=== PATIENT | male | born 1950 | race Caucasian/White ===

== ENCOUNTER 2020-09-26 11:45 | Inpatient (IN) | payer MEDICARE, SELFPAY ==
[2020-09-26] VITALS (32 sets, daily range): BP systolic 86–121; BP diastolic 52–78; PULSE 84–94; RESP 12–27; TEMP 36.7; O2SAT 82–99; BMI 34.8
[2020-09-26 12:47] LABS: ABG PCO2 61.8 mmHg (35-45); ABG PH Result 7.19 (7.35-7.45); Base Excess ABG -5.1 mmol/L (-2.0-2.0); Blood Gas Allen Test Pos; Blood Gas Operator Identificat MONRO; Blood Gas Sample Site Brachial, left; Blood Gas Sample Type Arterial; HCO3 ABG 23.7 mmol/L (22-26); Oxygen Device NC; PO2 ABG 93.1 mmHg (80.0-100.0)
--- NOTE | 2020-09-26 13:07 | US_ITS ---
WS: [id number] RENAL ULTRASOUND HISTORY: LOVELY COMPARISON: None available. TECHNIQUE: 2-D and color Doppler imaging of the kidney submitted. Right kidney: 11.0 cm x 7.5 cm x 6.1 cm. Normal echogenicity with no hydronephrosis or mass. Left kidney: 11.1 cm x 4.8 cm x 5.3 cm. Normal echogenicity with no hydronephrosis or mass. Aorta: Normal. Urinary Bladder: Nondistended. Knight catheter is in place. US/US renal BI* [id number] IMPRESSION: No renal obstruction or medical renal disease. Normal kidneys.
--- NOTE | 2020-09-26 13:07 | CTR_ITS ---
PROCEDURE INFORMATION: Exam: CT Head Without Contrast Exam date and time: 09/26/2020 5:19 PM Age: 70 years old Clinical indication: Altered mental status/memory loss; Additional info: AMS TECHNIQUE: Imaging protocol: Computed tomography of the head without contrast. Total images: 213 Radiation optimization: All CT scans at this facility use at least one of these dose optimization techniques: automated exposure control; mA and/or kV adjustment per patient size (includes targeted exams where dose is matched to clinical indication); or iterative reconstruction. COMPARISON: No relevant prior studies available. RADIATION DOSE METRICS: Total DLP (mGy-cm): 858.43 FINDINGS: Brain: No evidence of active or acute intracranial pathologic process, hemorrhage, or trauma. Mild small vessel ischemic disease with senile periventricular leukomalacia. Atrophic changes not inconsistent with the patient's chronological age. Few scattered benign intraparenchymal tiny calcification foci. Cerebral ventricles: No ventriculomegaly. Bones/joints: Unremarkable. No acute fracture. Paranasal sinuses: Mild chronic ethmoid and right maxillary sinusitis. Mastoid air cells: Visualized mastoid air cells are well aerated. Soft tissues: Unremarkable. Other findings: Motion artifact. CT/CT head wo con* [id number] IMPRESSION: No evidence of active or acute intracranial pathologic process, hemorrhage, or trauma. Radiation Dose CTDIVOL = (mGy): DLP = 858.43 (mGy-cm)
[2020-09-26 13:41] LABS: Glucose Point of Care 111 mg/dL (70-110)
[2020-09-26] MEDS: sodium chloride 0.9% 1,000 ML 75 ML IV (13:58)
[2020-09-26] MEDS: piperacillin-tazobactam 3.375 GM in sodium chloride 0.9% (plus) 50 ML IV ×2 (13:58→21:13)
[2020-09-26 14:43] LABS: Ammonia 49 umol/L (16-60)
[2020-09-26 14:46] LABS: Lactic Sepsis W/Reflex 0.9 mmol/L (0.5-2.2)
[2020-09-26 14:58] LABS: INR 1.12 (0.8-1.2)
--- NOTE | 2020-09-26 15:00 | P.HP_ITS ---
Providers/Chief Complaint Admitting Physician: Gildardo Brito Primary Care Provider: Ja Lay MD Chief Complaint: Covid Pneumonia History of Present Illness Hank London is a 70 year old male with unknown past medical history who is transferred from [facility] ED with diagnosis of hypoxia and hypotension. The patient is very confused and is unable to provide any history. Review of his home medications indicates that he probably has history of hypertension, dyslipidemia, GERD, possible diabetes. About 15 days ago according to ER physician the patient was diagnosed with COVID-19 pneumonia. The patient was hospitalized and treated and eventually [facility] facility. From there he went home about 2 days ago. Eventually EMS was called due to unresponsive state. The patient was found to have hypotension, hyposee, hypercapnia. He was given Narcan which helped with breathing and improved mental state for short period of time. The patient takes [place] according to the medication list however I was not able to get her information about why he is on [place] and if he takes [place] as instructed. I called to phone numbers provided in the chart. Nobody picked up the phone. Review of Systems General: Reports: ROS unobtainable due to mental status Medications/Allergies Allergies Allergy/AdvReac Type Severity Reaction Status Date / Time PATTI Inhibitors Allergy Unknown Verified 09/26/20 14:32 Vitals/I&O/Wt Last Vital Signs Pulse 86 09/26/20 13:16 Pulse Ox 98 09/26/20 13:16 Weight last 48 hrs Weight 103.873 kg Physical Exam Narrative: EXAM NARRATIVE: Patient is very lethargic. He opens his eyes when instructed. He also follows some other simple instructions. Unable to talk. No acute distress. Skin is warm and dry. Dry mucous membranes. Eyes. Pinpoint pupils which are symmetric and reactive. Neck is supple. No JVD. Lungs decreased breath sounds bilaterally. Mild bibasilar crackles. No respiratory distress. Bradypnea is present. Heart S1, S2, regular Abdomen obese, soft, nontender, bowel sounds are present Extremities no edema cyanosis or calf tenderness bilaterally Neuro exam no facial asymmetry. Moves all limbs but muscle strength is very decreased. Data : 09/26/20 13:55 09/26/20 13:55 Micro: Microbiology 09/26/20 13:55 Blood Culture - Preliminary Blood SPECIMEN COLLECTED 09/26/20 13:46 Blood Culture - Preliminary Blood SPECIMEN COLLECTED A&P Additional A&P Information Acute metabolic encephalopathy. Probably multifactorial. Could be related to opiates and definitely to hypercapnic metabolic acidosis. Continue management in ICU. N.p.o. Aspiration precautions. We will check TSH and ammonia level. Will order head CT. Acute hypoxic and hypercapnic respiratory failure. Will start BiPAP. Discussed with the respiratory therapist. Will use Narcan. First dose now. Possible septic shock. The patient has leukocytosis and is hypotensive. Pneumonia, possibly hospital-acquired type is suspected. We will continue norepinephrine. We will start him on broad-spectrum antibiotics. We will culture the blood. Very gentle IV fluid hydration. Cardiac status is unknown. Lactic acid level is normal. Acute kidney injury probably secondary to above. Will do ultrasound and insert Knight catheter. We will try to avoid nephrotoxic medications. Gentle hydration. Hyperkalemia. Probably secondary to acute kidney injury and acidosis. Continue normal saline. We will recheck his chemistry panel. Will avoid medications which can increase potassium level. Anemia. Monitor. Elevated LFTs. Monitor. Could be secondary to sepsis. Hyponatremia. Probably related to hyperglycemia. Close monitoring. Hyperglycemia-diabetes. Start insulin sliding scale. DVT prophylaxis. Teds and SCDs for now. Will wait with chemical anticoagulation until we have follow-up CBC and head CT reports. GI prophylaxis. Famotidine. Attestations Medical Necessity Statement*: The patient is admitted in critical condition to ICU. I expect that the patient will spend more than 2 midnights in the hospital Coding Level of Care Code Acute Escrow Representative for Kyleigh Haas
[2020-09-26 15:05] LABS: D Dimer 0.64 ug/mIFEU (0-0.59); Partial Thromboplastin Time 41.7 SECONDS (23.9-36.7)
[2020-09-26 15:51] LABS: ABG PCO2 54.3 mmHg (35-45); ABG PH Result 7.23 (7.35-7.45); Base Excess ABG -4.9 mmol/L (-2.0-2.0); Blood Gas Allen Test Pos; Blood Gas Operator Identificat MONRO; Blood Gas Sample Site Brachial, left; Blood Gas Sample Type Arterial; HCO3 ABG 22.9 mmol/L (22-26); Oxygen Device BIPAP
[2020-09-26 16:08] LABS: C Reactive Protein 61.9 mg/L (0.0-4.9); Thyroid Stimulating Hormone 2.16 uIU/mL (0.27-4.20)
[2020-09-26 16:10] LABS: Procalcitonin 0.86 ng/mL (0-0.5)
[2020-09-26 16:21] LABS: Alanine Aminotransferase 54 U/L (0-41); Albumin Level 3.2 g/dL (3.5-5.2); Alkaline Phosphatase 175 IU/L (40-130); Anion Gap 23.7 (5-19); Aspartate Amino Transferase 26 U/L (0-40); Calcium 8.4 mg/dL (8.5-10.5); Carbon Dioxide 19 mmol/L (22-29); Chloride 97 mmol/L (98-107); Globulin 3.5 g/dL (1.3-4.6); Glomerular Filtration Rate 22.6 mL/min (90-130); Glucose 97 mg/dL (65-115); Osmolality Calculated 306 mOsm/kg (285-295); Potassium 5.7 mmol/L (3.5-5.1); Sodium 134 mmol/L (136-145); Total Bilirubin 0.2 mg/dL (0.15-1.2); Total Protein 6.7 g/dL (6.6-8.7)
[2020-09-26] MEDS: famotidine 20 mg/2 mL INJ IVP (16:22)
[2020-09-26] MEDS: linezolid premix 600 MG/300 ML PREMIX 300 MG IV (16:22)
[2020-09-26 16:34] LABS: Blood Urea Nitrogen 92 mg/dL (8-23)
[2020-09-26 16:48] LABS: Glucose Point of Care 78 mg/dL (70-110)
[2020-09-26 17:05] LABS: Estmated Average Glucose 226; Hemoglobin A1C 9.5 % (4.0-6.0)
[2020-09-26 18:37] LABS: Basophils % 0.1 %; Eosinophils % 0.2 %; Hematocrit 33.7 % (42.0-52.0); Hemoglobin 10.7 g/dL (11.7-16.6); Lymphocytes # 0.8 10^3/uL (0.8-4.8); Lymphocytes % 5.4 %; Mean Corpuscular HGB Conc 31.8 g/dL (30.0-36.0); Mean Corpuscular Hemoglobin 28.6 pg (28.0-34.0); Mean Corpuscular Volume 90.1 fL (80-94); Mean Platelet Volume 10.6 fL (7.4-10.4); Monocytes # 0.9 10^3/uL (0.2-0.9); Monocytes % 5.9 %; Neutrophils # 13.29 10^3/uL (1.8-7.7); Nucleated Red Blood Cells % 0 %; Platelet Count 612 10^3/cmm (130-400); Red Blood Count 3.74 10^6/uL (4.1-5.3); Red Cell Distribution Width 14.9 % (12.1-15.1); White Blood Count 15.1 10^3/uL (4.0-10.0)
[2020-09-26 18:57] LABS: Glucose Point of Care 57 mg/dL (70-110)
[2020-09-26] MEDS: heparin 5,000 unit/mL INJ 1 mL 5000 UNIT SUBCUT (18:58)
[2020-09-26] MEDS: dextrose 50% syringe 50 mL 25 ML IVP (19:00)
[2020-09-26] MEDS: dextrose 5 % 500 ML 50 ML IV (19:00)
[2020-09-26 19:01] LABS: Add Urine Microscopic? YES; Bilirubin Urine Neg (Negative); Blood Urine 2+ (Negative); Glucose Urine UA Norm (Normal); Ketones Urine Negative (Negative); Leukocyte Esterase Urine 2+ (Negative); Nitrate Urine Negative (Negative); Protein Urine Neg (Negative); Urine Appearance Cloudy (CLEAR); Urine Color Yellow (Yellow); Urobilinogen Urine Norm (Negative); pH Urine 5 (5-7)
[2020-09-26 19:04] LABS: WBC Urine 55-80 /hpf (0-5)
[2020-09-26 19:05] LABS: Bacteria Urine 2+ /hpf; Hyaline Casts Urine 0-4 /lpf; Squamous Epithelial Cell Urine 0-4 /hpf (0-5)
[2020-09-26 19:06] LABS: Add Urine Culture? Yes
[2020-09-26 21:02] LABS: Glucose Point of Care 75 mg/dL (70-110)
--- NOTE | 2020-09-26 21:38 | PC.NURSE ---
AO to self and being in hospital, follows commands, keeps clothes and blankets off, fidgets in bed but denies pain and SOB, tries to move Bipap mask but leaves it alone with education, supine 45 degrees call light within reach at this time
[2020-09-27] VITALS (34 sets, daily range): BP systolic 91–148; BP diastolic 47–72; PULSE 73–96; RESP 12–26; TEMP 35.6–36.9; O2SAT 91–100
[2020-09-27 01:38] LABS: Glucose Point of Care 57 mg/dL (70-110)
[2020-09-27 01:38] LABS: Glucose Point of Care 55 mg/dL (70-110)
[2020-09-27] MEDS: dextrose 50% syringe 50 mL 25 ML IVP (01:42)
--- NOTE | 2020-09-27 01:45 | PC.NURSE ---
Glucose 55, 1/2 amp D50 given per protocol, D5 still running at 50 ml/hr
[2020-09-27 02:21] LABS: Glucose Point of Care 74 mg/dL (70-110)
[2020-09-27 02:21] LABS: Glucose Point of Care 68 mg/dL (70-110)
[2020-09-27] MEDS: heparin 5,000 unit/mL INJ 1 mL 5000 UNIT SUBCUT ×3 (02:28→18:23)
[2020-09-27 02:38] LABS: Glucose Point of Care 76 mg/dL (70-110)
[2020-09-27 03:18] LABS: Glucose Point of Care 70 mg/dL (70-110)
--- NOTE | 2020-09-27 03:28 | PC.NURSE ---
Glucose currently 70, previous was 74, patient not alert enough to attempt to eat or drink, D5 increased to 100 ml/hr, Dr. Hernandez notified and advised this nurse to continue with D5
[2020-09-27] MEDS: dextrose 5 % 500 ML 100 ML IV (03:34)
[2020-09-27] MEDS: sodium chloride 0.9% 1,000 ML 75 ML IV (03:39)
[2020-09-27] MEDS: famotidine 20 mg/2 mL INJ IVP ×2 (03:58→15:48)
[2020-09-27] MEDS: linezolid premix 600 MG/300 ML PREMIX 300 MG IV ×2 (04:06→15:48)
[2020-09-27 04:50] LABS: Basophils % 0.2 %; Eosinophils % 0.2 %; Hematocrit 34.5 % (42.0-52.0); Hemoglobin 10.6 g/dL (11.7-16.6); Lymphocytes # 1.1 10^3/uL (0.8-4.8); Lymphocytes % 6.5 %; Mean Corpuscular HGB Conc 30.7 g/dL (30.0-36.0); Mean Corpuscular Hemoglobin 28.1 pg (28.0-34.0); Mean Corpuscular Volume 91.5 fL (80-94); Mean Platelet Volume 10.8 fL (7.4-10.4); Monocytes % 5.8 %; Neutrophils # 14.79 10^3/uL (1.8-7.7); Neutrophils % 86.9 %; Nucleated Red Blood Cells % 0 %; Platelet Count 575 10^3/cmm (130-400); Red Blood Count 3.77 10^6/uL (4.1-5.3)
[2020-09-27 05:34] LABS: Glucose Point of Care 110 mg/dL (70-110)
[2020-09-27] MEDS: piperacillin-tazobactam 3.375 GM in sodium chloride 0.9% (plus) 50 ML IV ×3 (05:41→22:32)
[2020-09-27 06:41] LABS: Alanine Aminotransferase 54 U/L (0-41); Albumin Level 3.2 g/dL (3.5-5.2); Alkaline Phosphatase 167 IU/L (40-130); Anion Gap 17.5 (5-19); Aspartate Amino Transferase 58 U/L (0-40); Blood Urea Nitrogen 72 mg/dL (8-23); Carbon Dioxide 23 mmol/L (22-29); Chloride 99 mmol/L (98-107); Globulin 3.4 g/dL (1.3-4.6); Glomerular Filtration Rate 37.7 mL/min (90-130); Glucose 64 mg/dL (65-115); Osmolality Calculated 299 mOsm/kg (285-295); Potassium 4.5 mmol/L (3.5-5.1); Sodium 135 mmol/L (136-145); Total Bilirubin 0.2 mg/dL (0.15-1.2); Total Protein 6.6 g/dL (6.6-8.7)
[2020-09-27 06:46] LABS: Calcium 8.1 mg/dL (8.5-10.5); Magnesium 2.2 mg/dL (1.7-2.3)
[2020-09-27 09:41] LABS: Glucose Point of Care 93 mg/dL (70-110)
[2020-09-27 10:45] LABS: Glucose Point of Care 77 mg/dL (70-110)
[2020-09-27] MEDS: dextrose 5%-sod chloride 0.45% 1,000 ML 100 ML IV (10:45)
[2020-09-27 10:56] LABS: ABG PCO2 51.1 mmHg (35-45); ABG PH Result 7.31 (7.35-7.45); Base Excess ABG -0.8 mmol/L (-2.0-2.0); Blood Gas Allen Test Pos; Blood Gas Operator Identificat AMH; Blood Gas Sample Site Radial, left; Blood Gas Sample Type Arterial; HCO3 ABG 25.9 mmol/L (22-26); Oxygen Device BIPAP; PO2 ABG 72.1 mmHg (80.0-100.0)
[2020-09-27 12:09] LABS: Glucose Point of Care 67 mg/dL (70-110)
[2020-09-27] MEDS: dextrose 50% syringe 50 mL IVP (12:09)
--- NOTE | 2020-09-27 13:31 | P.PN_ITS ---
Subjective Subjective: Interval history: The patient remained on BiPAP since yesterday. Bradypnea has resolved. Still lethargic but more responsive. No acute distress. Several hypoglycemic episodes are registered. Off pressors. Blood pressure is improved. Medications: Reviewed: Yes Medication Review Details: Generic Name Dose Route Start Last Admin Trade Name Freq PRN Reason Stop Dose Admin Dextrose 50 ml 09/26/20 13:07 09/27/20 12:09 Dextrose 50% Syr bernardo 50 Ml IVP 50 ml PRN PRN Administration hypoglycemia prot ocol Protocol Famotidine 20 mg 09/26/20 16:00 09/27/20 03:58 Famotidine 20 Mg /2 Ml Inj IVP 20 mg Q12H BRIT Administration Heparin Sodium (Be ef Lung) 5,000 unit 09/26/20 18:00 09/27/20 10:40 Heparin 5,000 Un it/Ml Inj 1 Ml SUBCUT 5,000 unit Q8H BRIT Administration Norepinephrine Bit artrate 4 mg 254 mls @ 0 mls/h r 09/26/20 12:45 09/26/20 21:13 / Dextrose IV 0 mcg/min .Q0M BRIT 0 mls/hr Titration Protocol Per Protocol Piperacillin Sod/T azobactam 50 mls @ 12.5 mls /hr 09/26/20 14:00 09/27/20 10:45 Sod 3.375 gm/ So dium Chloride IV Infused Q8H BRIT Infusion Protocol As Directed Linezolid 600 mg in 300 mls @ 300 mls/hr 09/26/20 16:00 09/27/20 06:40 Zyvox Premix IV Infused Q12H BRIT Infusion Protocol Dextrose/Sodium Ch loride 1,000 mls @ 100 m ls/hr 09/27/20 10:15 09/27/20 10:45 Dextrose 5%-Sod Chloride 0.45% IV 100 mls/hr .Q10H BRIT Administration Insulin Aspart 0 unit 09/26/20 13:15 09/27/20 12:53 Insulin Aspart 1 00 Unit/1 Ml SUBCUT Not Given Q6H BRIT Protocol Vitals/I&O/Wt Last Vital Signs Temp 98.1 F 09/27/20 09:00 Pulse 86 09/27/20 12:00 Resp 20 H 09/27/20 09:00 BP 126/72 09/27/20 12:00 Pulse Ox 94 09/27/20 12:00 09/26/20 09/27/20 09/27/20 22:59 06:59 14:59 Intake Total 415.393 / 684.275 3715.333 / 2243.726 1082.5 / 1082.5 Output Total 400 / 700 1550 / 2250 1200 / 1200 Balance 15.393 / -234.607 228.333 / -6.274 -117.5 / -117.5 Weight last 48 hrs Weight 106.141 kg Weight 103.873 kg Physical Exam Narrative: EXAM NARRATIVE: Patient is less lethargic. He opens his eyes when instructed. He also follows nstructions. No dysarthria. However the speech is slow. Confusion is present. No acute distress. Skin is warm and dry. Moist mucous membranes. Eyes. Pinpoint pupils which are symmetric and reactive. Extraocular muscles ar e intact Neck is supple. No JVD. Lungs decreased breath sounds bilaterally. Decreased breath sounds bibasilarly. No respiratory distress. Heart S1, S2, regular Abdomen obese, soft, nontender, bowel sounds are present Extremities no edema cyanosis or calf tenderness bilaterally Neuro exam no facial asymmetry. Moves all limbs but muscle strength is very decreased. Urinary Catheter Management^: Knight: Cath Placed During This Visit: no Reason for Continuing Indwelling Catheter: Accurate Measurement of Urinary Output in Critically Ill Patients Data : 09/27/20 04:40 09/27/20 04:40 Micro: Microbiology 09/26/20 13:55 Blood Culture - Preliminary Blood SPECIMEN COLLECTED 09/26/20 13:46 Blood Culture - Preliminary Blood SPECIMEN COLLECTED A&P Additional A&P Information Acute metabolic encephalopathy. Probably multifactorial. Could be related to opiates and definitely to hypercapnic metabolic acidosis. Continue management in ICU. Aspiration precautions. Speech eval. TSH and ammonia levels within normal range. CT was unremarkable. Acute hypoxic and hypercapnic respiratory failure. Continue BiPAP for now with transition to nasal cannula to maintain oxygen saturation at 92-94. Discussed with the nurse and respiratory therapist. Severe sepsis and septic shock. Hypotension has resolved. Off pressors. Pneumonia. Probably hospital-acquired type. Blood cultures are pending. Continue linezolid and Zosyn. We will add doxycycline for a typical coverage. UTI. Zosyn. We will add urine culture. Acute kidney injury probably secondary to above. Renal ultrasound was within normal range. Continue Knight. We will try to avoid nephrotoxic medications. Gentle hydration. Hyperkalemia. Probably secondary to acute kidney injury and acidosis. Resolved. Monitor. Anemia. Stable. Monitor. Elevated LFTs. Monitor. Could be secondary to sepsis and shock. Hyponatremia. Probably related to hyperglycemia. Close monitoring. Hyperglycemia-diabetes. Currently has persistent hypoglycemia. We will check random cortisol level and start dexamethasone empirically. DVT prophylaxis. Heparin. GI prophylaxis. Famotidine. Attestations Medical Necessity Statement*: Condition is still critical. Requires ICU management. Coding Level of Care Code Acute Mental Health Specialist for Kyleigh Haas
[2020-09-27] MEDS: dexamethasone 4 mg/mL INJ 6 MG IVP (14:08)
[2020-09-27 15:42] LABS: Cortisol Random 26.65 ug/mL (2.47-19.5)
[2020-09-27] MEDS: dextrose 5%-sod chloride 0.9% 1,000 ML 100 ML IV (15:48)
[2020-09-27] MEDS: levofloxacin-dextrose 5 % 750 MG/150 ML PREMIX 100 MG IV (15:53)
[2020-09-27 16:00] LABS: Glucose Point of Care 134 mg/dL (70-110)
[2020-09-27 18:28] LABS: Glucose Point of Care 203 mg/dL (70-110)
[2020-09-27] MEDS: ipratropium-albuterol 3 mL Neb INHALATION (19:20)
--- NOTE | 2020-09-27 23:24 | PC.NURSE ---
pulled out 2 IVs, 2 new 20 gages inserted keeps pulling off Bipap, not cooperating with care, Dr. Hernandez notified
[2020-09-28] VITALS (30 sets, daily range): BP systolic 118–185; BP diastolic 67–102; PULSE 87–101; RESP 16–20; TEMP 36.7–37; O2SAT 86–97
[2020-09-28] MEDS: OLANZapine 10 mg VIAL IM (00:49)
--- NOTE | 2020-09-28 00:53 | PC.NURSE ---
Pulled out new IV to LAC, got self out of bed and had a BM in the floor
[2020-09-28 00:59] LABS: Glucose Point of Care 187 mg/dL (70-110)
[2020-09-28] MEDS: heparin 5,000 unit/mL INJ 1 mL 5000 UNIT SUBCUT ×3 (02:54→18:18)
[2020-09-28] MEDS: famotidine 20 mg/2 mL INJ IVP (03:14)
[2020-09-28] MEDS: linezolid premix 600 MG/300 ML PREMIX 300 MG IV ×2 (03:15→16:41)
--- NOTE | 2020-09-28 03:50 | PC.NURSE ---
refusing telemetry, Bipap and NC, on RA at this time
[2020-09-28 04:20] LABS: Basophils % 0.2 %; Hematocrit 32.8 % (42.0-52.0); Hemoglobin 10.4 g/dL (11.7-16.6); Lymphocytes % 8.5 %; Mean Corpuscular HGB Conc 31.7 g/dL (30.0-36.0); Mean Corpuscular Volume 88.4 fL (80-94); Mean Platelet Volume 10.7 fL (7.4-10.4); Monocytes # 0.4 10^3/uL (0.2-0.9); Monocytes % 3.9 %; Nucleated Red Blood Cells % 0 %; Platelet Count 533 10^3/cmm (130-400); Red Blood Count 3.71 10^6/uL (4.1-5.3); Red Cell Distribution Width 14.7 % (12.1-15.1); White Blood Count 11.4 10^3/uL (4.0-10.0)
[2020-09-28 04:52] LABS: Albumin Level 2.9 g/dL (3.5-5.2); Blood Urea Nitrogen 38 mg/dL (8-23); Calcium 8.4 mg/dL (8.5-10.5); Carbon Dioxide 27 mmol/L (22-29); Chloride 102 mmol/L (98-107); Glomerular Filtration Rate 83.9 mL/min (90-130); Glucose 124 mg/dL (65-115); Phosphorus 1.7 mg/dL (2.5-4.5); Sodium 139 mmol/L (136-145)
[2020-09-28 04:53] LABS: Anion Gap 13.9 (5-19); Potassium 3.9 mmol/L (3.5-5.1)
[2020-09-28 04:59] LABS: Magnesium 2.1 mg/dL (1.7-2.3)
[2020-09-28] MEDS: piperacillin-tazobactam 3.375 GM in sodium chloride 0.9% (plus) 50 ML IV ×3 (05:15→21:00)
[2020-09-28] MEDS: ipratropium-albuterol 3 mL Neb INHALATION ×2 (08:10→20:59)
[2020-09-28] MEDS: dexamethasone 4 mg Tablet PO (11:51)
[2020-09-28 13:30] LABS: Glucose Point of Care 102 mg/dL (70-110)
[2020-09-28 13:30] LABS: Glucose Point of Care 47 mg/dL (70-110)
[2020-09-28 13:30] LABS: Glucose Point of Care 52 mg/dL (70-110)
[2020-09-28 13:39] LABS: Glucose Point of Care 93 mg/dL (70-110)
--- NOTE | 2020-09-28 15:18 | PM.PN ---
Subjective Subjective: Interval history: The patient is doing much better today. Lethargy has resolved. She did not require BiPAP. Denies any active complaints. No fever or chills. No nausea or vomiting. No chest pain, shortness of breath, cough, palpitations. Medications: Reviewed: Yes Medication Review Details: Generic Name Dose Route Start Last Admin Trade Name Freq PRN Reason Stop Dose Admin Albuterol/Ipratrop ium 3 ml 09/26/20 16:56 09/28/20 08:10 Ipratropium-Albu terol 3 Ml Neb INHALATION 3 ml Q4H.RESPIRATORY P RN Administration SHORTNESS OF ZOLTAN TH Dexamethasone 4 mg 09/28/20 11:30 09/28/20 11:51 Dexamethasone 4 Mg Tablet PO 4 mg DAILY BRIT Administration Dextrose 50 ml 09/26/20 13:07 09/27/20 12:09 Dextrose 50% Syr bernardo 50 Ml IVP 50 ml PRN PRN Administration hypoglycemia prot ocol Protocol Heparin Sodium (Be ef Lung) 5,000 unit 09/26/20 18:00 09/28/20 10:58 Heparin 5,000 Un it/Ml Inj 1 Ml SUBCUT 5,000 unit Q8H BRIT Administration Norepinephrine Bit artrate 4 mg 254 mls @ 0 mls/h r 09/26/20 12:45 09/26/20 21:13 / Dextrose IV 0 mcg/min .Q0M BRIT 0 mls/hr Titration Protocol Per Protocol Piperacillin Sod/T azobactam 50 mls @ 12.5 mls /hr 09/26/20 14:00 09/28/20 14:41 Sod 3.375 gm/ So dium Chloride IV 100 mls/hr Q8H BRIT Administration Protocol As Directed Linezolid 600 mg in 300 mls @ 300 mls/hr 09/26/20 16:00 09/28/20 07:08 Zyvox Premix IV Infused Q12H BRIT Infusion Protocol Dextrose/Sodium Ch loride 1,000 mls @ 100 m ls/hr 09/27/20 13:30 09/28/20 02:32 Dextrose 5%-Sod Chloride 0.9% IV Infused .Q10H BRIT Infusion Levofloxacin/Dextr ose 750 mg in 150 mls @ 100 mls/hr 09/27/20 14:30 09/27/20 17:30 Levaquin-D5w IV Infused Q48H [facility] Infusion Protocol Insulin Aspart 0 unit 09/26/20 13:15 09/28/20 14:19 Insulin Aspart 1 00 Unit/1 Ml SUBCUT Not Given Q6H [facility] Protocol Olanzapine 10 mg 09/28/20 00:28 09/28/20 00:49 Olanzapine 10 Mg Vial IM 10 mg ONCE PRN Administration ANXIETY Vitals/I&O/Wt Last Vital Signs Temp 98.5 F 09/28/20 12:00 Pulse 89 09/28/20 08:17 Resp 16 09/28/20 15:02 BP 170/93 09/28/20 14:00 Pulse Ox 93 09/28/20 15:02 09/28/20 09/28/20 09/28/20 06:59 14:59 22:59 Intake Total 1050 / 3145.833 650 / 650 Output Total 2100 / 4200 750 / 750 Balance -1050 / -1054.167 -100 / -100 Weight last 48 hrs Weight 107.592 kg Weight 106.141 kg Physical Exam Narrative: EXAM NARRATIVE: Awake alert oriented. No acute distress. Mood and affect are appropriate. Responses are adequate. Skin is warm and dry. Moist mucous membranes. Eyes. PERRLA, extraocular muscles are intact. Neck is supple. No JVD. Clear to auscultation bilaterally. No respiratory distress. Heart S1, S2, regular Abdomen obese, soft, nontender, bowel sounds are present Extremities no edema cyanosis or calf tenderness bilaterally Neuro exam is nonfocal. Normal speech. Urinary Catheter Management^: Knight: Cath Placed During This Visit: no Reason for Continuing Indwelling Catheter: Accurate Measurement of Urinary Output in Critically Ill Patients Data : 09/28/20 03:20 09/28/20 03:20 Micro: Microbiology 09/26/20 17:12 Urine Culture - Preliminary Urine,Clean Catch Gram Negative Rods 09/26/20 13:55 Blood Culture - Preliminary Blood NEGATIVE TO DATE 09/26/20 13:46 Blood Culture - Preliminary Blood NEGATIVE TO DATE A&P Additional A&P Information Acute metabolic encephalopathy. Currently resolved. Probably multifactorial. Could be related to opiates and definitely to hypercapnic metabolic acidosis. TSH and ammonia levels within normal range. CT was unremarkable. Acute hypoxic and hypercapnic respiratory failure. Resolved. Currently on room air and is oxygenating well. Severe sepsis and septic shock. Hypotension has resolved. Off pressors. Pneumonia. Probably hospital-acquired type. Blood cultures are pending. Continue current antibiotics. We will start de-escalating tomorrow. UTI. Zosyn. We will add urine culture. Acute kidney injury probably secondary to above. Resolving. Renal ultrasound was within normal range. Continue Knight. We will try to avoid nephrotoxic medications. Oral hydration. Hyperkalemia. Probably secondary to acute kidney injury and acidosis. Resolved. Monitor. Anemia. Stable. Monitor. Elevated LFTs. Monitor. Could be secondary to sepsis and shock. Hyponatremia. Resolved. Monitor. Hypoglycemia. I suspect this could be secondary to relative adrenal insufficiency. The patient has history of recent Covid for which he probably received course of steroids. I have resumed steroids yesterday. Hypoglycemia, hypotension, and confusion have resolved. We will continue steroid taper. Resuming diet today. ? Adrenal insufficiency. As above. Continue steroid taper. DVT prophylaxis. Heparin. GI prophylaxis. Famotidine. Attestations Medical Necessity Statement*: Patient requires inpatient during for complex medical conditions listed above. Adjusting medications. Coding Level of Care Code Acute Tool Grinding Technician for Kyleigh Haas
[2020-09-28] MEDS: dextrose 5%-sod chloride 0.9% 1,000 ML 100 ML IV (16:41)
[2020-09-28 17:49] LABS: Glucose Point of Care 105 mg/dL (70-110)
[2020-09-28] MEDS: famotidine 20 mg Tablet PO (18:18)
[2020-09-28] MEDS: phosphorus 250 mg Tablet PO (18:18)
[2020-09-28 21:16] LABS: Glucose Point of Care 152 mg/dL (70-110)
[2020-09-29] VITALS (23 sets, daily range): BP systolic 145–208; BP diastolic 72–111; PULSE 82–100; RESP 12–20; TEMP 36.2–37; O2SAT 92–100
[2020-09-29] MEDS: heparin 5,000 unit/mL INJ 1 mL 5000 UNIT SUBCUT (02:31)
[2020-09-29] MEDS: linezolid premix 600 MG/300 ML PREMIX 300 MG IV (03:22)
[2020-09-29 03:48] LABS: Basophils % 0.3 %; Eosinophils % 0.2 %; Hematocrit 32.9 % (42.0-52.0); Hemoglobin 10.6 g/dL (11.7-16.6); Lymphocytes # 1.8 10^3/uL (0.8-4.8); Lymphocytes % 18.9 %; Mean Corpuscular HGB Conc 32.2 g/dL (30.0-36.0); Mean Corpuscular Hemoglobin 28.1 pg (28.0-34.0); Mean Corpuscular Volume 87.3 fL (80-94); Mean Platelet Volume 10.5 fL (7.4-10.4); Monocytes # 0.6 10^3/uL (0.2-0.9); Monocytes % 6.5 %; Neutrophils # 7.13 10^3/uL (1.8-7.7); Neutrophils % 73.7 %; Nucleated Red Blood Cells % 0 %; Platelet Count 527 10^3/cmm (130-400); Red Blood Count 3.77 10^6/uL (4.1-5.3); Red Cell Distribution Width 14.6 % (12.1-15.1); White Blood Count 9.7 10^3/uL (4.0-10.0)
[2020-09-29 04:16] LABS: Albumin Level 2.9 g/dL (3.5-5.2); Blood Urea Nitrogen 20 mg/dL (8-23); Calcium 8.5 mg/dL (8.5-10.5); Carbon Dioxide 30 mmol/L (22-29); Chloride 105 mmol/L (98-107); Glomerular Filtration Rate 96.1 mL/min (90-130); Glucose 64 mg/dL (65-115); Phosphorus 2.1 mg/dL (2.5-4.5); Sodium 144 mmol/L (136-145)
[2020-09-29 04:18] LABS: Magnesium 1.9 mg/dL (1.7-2.3)
[2020-09-29 04:24] LABS: Anion Gap 12.6 (5-19); Potassium 3.6 mmol/L (3.5-5.1)
[2020-09-29] MEDS: piperacillin-tazobactam 3.375 GM in sodium chloride 0.9% (plus) 50 ML IV ×3 (05:45→22:35)
[2020-09-29] MEDS: famotidine 20 mg Tablet PO ×2 (10:28→18:44)
[2020-09-29] MEDS: dexamethasone 4 mg Tablet PO (10:29)
[2020-09-29] MEDS: phosphorus 250 mg Tablet PO (10:29)
--- NOTE | 2020-09-29 12:04 | PM.PN ---
Subjective Subjective: Interval history: The patient is doing about the same. No significant events except for persistent but a symptomatic hypoglycemia. Lethargy has resolved. Denies any active complaints. No fever or chills. No nausea or vomiting. No chest pain, shortness of breath, cough, palpitations. Medications: Reviewed: Yes Medication Review Details: Generic Name Dose Route Start Last Admin Trade Name Freq PRN Reason Stop Dose Admin Albuterol/Ipratrop ium 3 ml 09/26/20 16:56 09/28/20 20:59 Ipratropium-Albu terol 3 Ml Neb INHALATION 3 ml Q4H.RESPIRATORY P RN Administration SHORTNESS OF ZOLTAN TH Dexamethasone 4 mg 09/28/20 11:30 09/29/20 10:29 Dexamethasone 4 Mg Tablet PO 4 mg DAILY BRIT Administration Dextrose 50 ml 09/26/20 13:07 09/27/20 12:09 Dextrose 50% Syr bernardo 50 Ml IVP 50 ml PRN PRN Administration hypoglycemia prot ocol Protocol Famotidine 20 mg 09/28/20 18:00 09/29/20 10:28 Famotidine 20 Mg Tablet PO 20 mg BID BRIT Administration Norepinephrine Bit artrate 4 mg 254 mls @ 0 mls/h r 09/26/20 12:45 09/26/20 21:13 / Dextrose IV 0 mcg/min .Q0M BRIT 0 mls/hr Titration Protocol Per Protocol Dextrose/Sodium Ch loride 1,000 mls @ 100 m ls/hr 09/27/20 13:30 09/28/20 21:01 Dextrose 5%-Sod Chloride 0.9% IV Not Given .Q10H BRIT Olanzapine 10 mg 09/28/20 00:28 09/28/20 00:49 Olanzapine 10 Mg Vial IM 10 mg ONCE PRN Administration ANXIETY Vitals/I&O/Wt Last Vital Signs Temp 97.8 F 09/29/20 11:52 Pulse 97 09/29/20 11:55 Resp 18 09/29/20 11:55 BP 145/72 09/29/20 11:52 Pulse Ox 98 09/29/20 11:55 09/28/20 09/29/20 09/29/20 22:59 06:59 14:59 Intake Total 650 / 1300 120 / 120 Output Total Balance 649 / 549 120 / 120 Weight last 48 hrs Weight 95.254 kg Weight 107.592 kg Physical Exam Narrative: EXAM NARRATIVE: Awake alert oriented. No acute distress. Mood and affect are appropriate. Responses are adequate. Skin is warm and dry. Moist mucous membranes. Eyes. PERRLA, extraocular muscles are intact. Neck is supple. No JVD. Clear to auscultation bilaterally. No respiratory distress. Heart S1, S2, regular Abdomen obese, soft, nontender, bowel sounds are present Extremities no edema cyanosis or calf tenderness bilaterally Neuro exam is nonfocal. Normal speech. Urinary Catheter Management^: Knight: Cath Placed During This Visit: yes, but has since been removed by the nurse Reason for Continuing Indwelling Catheter: Acute Urinary Retention or Obstruction Date Urinary Catheter Removed: 09/28/20 Time Urinary Catheter Discontinued: 11:30 Data : 09/29/20 00:34 09/29/20 00:34 Micro: Microbiology 09/26/20 17:12 Urine Culture - Final Urine,Clean Catch Pseudomonas aeruginosa A&P Additional A&P Information Acute metabolic encephalopathy. Currently resolved. Probably multifactorial. Could be related to opiates and definitely to hypercapnic metabolic acidosis. TSH and ammonia levels within normal range. CT was unremarkable. Acute hypoxic and hypercapnic respiratory failure. Resolved. Currently on room air and is oxygenating well. Severe sepsis and septic shock. Hypotension has resolved. Off pressors. Continuing Zosyn. Pneumonia. Probably hospital-acquired type. Blood cultures are pending. We will keep him on Zosyn. Discontinuing other antibiotics for de-escalation. Additional Levaquin according to up-to-date in rare cases can cause hypoglycemia. UTI. Cultures positive for Pseudomonas. Continue Zosyn. Acute kidney injury probably secondary to above. Resolved. Renal ultrasound was within normal range. Discontinue Knight. Discussed with the nurse. We will try to avoid nephrotoxic medications. Oral hydration. Hyperkalemia. Probably secondary to acute kidney injury and acidosis. Resolved. Monitor. Anemia. Stable. Monitor. Elevated LFTs. Monitor. Could be secondary to sepsis and shock. Hyponatremia. Resolved. Monitor. Hypoglycemia. Not sure what the causes. His A1c is almost 10. I doubt insulinoma. I doubt diabetes medication induced. He has not received anything since his admission. Could be secondary to Levaquin or heparin according to up-to-date. We will stop this medications and continue monitoring. Hypoglycemia protocol. Eating well. ? Adrenal insufficiency. As above. Continue steroid taper. DVT prophylaxis. Heparin. GI prophylaxis. Famotidine. Attestations Medical Necessity Statement*: Keeping him due to hypoglycemia. Close monitoring and additional testing. Coding Level of Care Code Acute Construction Coordinator for Kyleigh Haas
--- NOTE | 2020-09-29 13:39 | PC.PHAR ---
pt states he takes care of his own medications-pt states he is unsure of all the names of his medications but he states he knows he takes a aspirin 325mg daily and uses tresiba 120 units at bedtime rx for tresiba was last filled on 08/23/20 36d/s for 100 units at bedtime
--- NOTE | 2020-09-29 14:12 | PC.SOCIAL ---
Pg 2 IMM Explained to pt's Daisy, Pg 2 IMM. No questions voiced. Copy provided to pt. Signed, dated, & timed a copy & placed in chart.
[2020-09-29] MEDS: enoxaparin 40 mg/0.4 mL Syringe SUBCUT (18:45)
[2020-09-30] VITALS (27 sets, daily range): BP systolic 130–184; BP diastolic 53–108; PULSE 78–98; RESP 3–21; TEMP 36.6–37.2; O2SAT 78–97
[2020-09-30 00:23] LABS: Quest SARS-CoV-2 RNA NOT DETECTED (NOT DETECTED)
[2020-09-30 03:35] LABS: Glucose Point of Care 64 mg/dL (70-110)
[2020-09-30 03:35] LABS: Glucose Point of Care 55 mg/dL (70-110)
[2020-09-30] MEDS: dextrose 50% syringe 50 mL IVP (03:51)
[2020-09-30] MEDS: dextrose 5%-sod chloride 0.9% 1,000 ML 100 ML IV (03:52)
--- NOTE | 2020-09-30 04:01 | PC.NURSE ---
Blood Glucose: Pt BG level reported at 55. Pt is often confused at times, and refuses BG draws with multiple attempts made by nursing staff. Pt also refuses Accu checks. Finally RN able to retrieve blood sample via accu check, and BG levels found at 55. RN offered pudding, wiliam crackers, peanut butter, and juice. Pt denies food despite multiple attempts being made. RN contacted MD head of store operations to update on pts status. New orders for RN to initiate hypoglycemia protocol pharmacologically as pt persistently denies nursing interventions, and refuses to eat much food. D50 given IVP, and dextrose 5% NS initiated via IV.
--- NOTE | 2020-09-30 04:13 | PC.NURSE ---
5% dextrose NS found paused from 09/27. This RN nonadmin them in MAR to reflect med not being given. Med now running at 100mL/hr as MAR indicates.
[2020-09-30 04:21] LABS: Basophils % 0.4 %; Eosinophils # 0.1 10^3/uL (0.0-0.8); Hematocrit 35.1 % (42.0-52.0); Hemoglobin 11.3 g/dL (11.7-16.6); Lymphocytes # 1.8 10^3/uL (0.8-4.8); Lymphocytes % 21.7 %; Mean Corpuscular HGB Conc 32.2 g/dL (30.0-36.0); Mean Corpuscular Hemoglobin 28.3 pg (28.0-34.0); Mean Platelet Volume 10.5 fL (7.4-10.4); Monocytes # 0.7 10^3/uL (0.2-0.9); Monocytes % 8.3 %; Neutrophils # 5.67 10^3/uL (1.8-7.7); Neutrophils % 67.9 %; Nucleated Red Blood Cells % 0 %; Platelet Count 478 10^3/cmm (130-400); Red Blood Count 3.99 10^6/uL (4.1-5.3); Red Cell Distribution Width 14.5 % (12.1-15.1); White Blood Count 8.3 10^3/uL (4.0-10.0)
[2020-09-30 04:42] LABS: D Dimer 0.69 ug/mIFEU (0-0.59)
[2020-09-30 04:55] LABS: Alanine Aminotransferase 56 U/L (0-41); Albumin Level 3.2 g/dL (3.5-5.2); Alkaline Phosphatase 137 IU/L (40-130); Anion Gap 13.7 (5-19); Aspartate Amino Transferase 47 U/L (0-40); Blood Urea Nitrogen 16 mg/dL (8-23); C Reactive Protein 23.4 mg/L (0.0-4.9); Carbon Dioxide 30 mmol/L (22-29); Chloride 104 mmol/L (98-107); Globulin 3.2 g/dL (1.3-4.6); Glomerular Filtration Rate 96.1 mL/min (90-130); Glucose 50 mg/dL (65-115); Magnesium 1.8 mg/dL (1.7-2.3); Osmolality Calculated 298 mOsm/kg (285-295); Sodium 145 mmol/L (136-145); Total Bilirubin 0.2 mg/dL (0.15-1.2); Total Protein 6.4 g/dL (6.6-8.7)
[2020-09-30 04:59] LABS: Procalcitonin 0.14 ng/mL (0-0.5)
[2020-09-30 05:31] LABS: Potassium 2.7 mmol/L (3.5-5.1)
[2020-09-30] MEDS: piperacillin-tazobactam 3.375 GM in sodium chloride 0.9% (plus) 50 ML IV ×3 (06:21→22:09)
[2020-09-30 06:28] LABS: Glucose Point of Care 138 mg/dL (70-110)
--- NOTE | 2020-09-30 07:01 | PC.NURSE ---
Shift Summary: Patient continues to fluctuate between A&O4 and borderline confused stating that he did not know where he was or how he got here . Patient has been found to have pulled off his BP cuff and leads and toss them into the floor, and stopping his IV/unhooking himself to get up and use the restroom. RN has educated pt on the need to use call light with constant reminders given with each attempt when found out of bed. D5 NS infusion paused at this point, as pt refuses to allow for sugar medications to be delivered through his peripheral IV. Latest BG was in the 130's. Overall, patient slept well, just continues to show confusion at times, and needs to be redirected on importance of following safety interventions such as using call light and allowing for help from nursing staff to and from bathroom. Pt currently sleeping well. Remained in SR throughout shift. Call light in reach. Resting peacefully. Report given to soraya sewell RN.
[2020-09-30 09:07] LABS: Glucose Point of Care 90 mg/dL (70-110)
[2020-09-30] MEDS: dexamethasone 4 mg Tablet PO (09:49)
[2020-09-30] MEDS: famotidine 20 mg Tablet PO ×2 (09:49→17:54)
[2020-09-30 10:34] LABS: Glucose Point of Care 121 mg/dL (70-110)
--- NOTE | 2020-09-30 11:07 | P.PN_ITS ---
Subjective Subjective: Interval history: Patient reports feeling better. Reports getting stronger. Denies shortness of breath. Denies confusion. No chest pain. No fever or chills. No diarrhea. Medications: Reviewed: Yes Medication Review Details: Generic Name Dose Route Start Last Admin Trade Name Freq PRN Reason Stop Dose Admin Albuterol/Ipratrop ium 3 ml 09/26/20 16:56 09/28/20 20:59 Ipratropium-Albu terol 3 Ml Neb INHALATION 3 ml Q4H.RESPIRATORY P RN Administration SHORTNESS OF ZOLTAN TH Dexamethasone 4 mg 09/28/20 11:30 09/30/20 09:49 Dexamethasone 4 Mg Tablet PO 4 mg DAILY BRIT Administration Enoxaparin Sodium 40 mg 09/29/20 18:00 09/29/20 18:45 Enoxaparin 40 Mg /0.4 Ml Syringe SUBCUT 40 mg Q24H BRIT Administration Famotidine 20 mg 09/28/20 18:00 09/30/20 09:49 Famotidine 20 Mg Tablet PO 20 mg BID BRIT Administration Norepinephrine Bit artrate 4 mg 254 mls @ 0 mls/h r 09/26/20 12:45 09/26/20 21:13 / Dextrose IV 0 mcg/min .Q0M BRIT 0 mls/hr Titration Protocol Per Protocol Dextrose/Sodium Ch loride 1,000 mls @ 50 ml s/hr 09/27/20 13:30 09/30/20 06:10 Dextrose 5%-Sod Chloride 0.9% IV 0 mls/hr .Q20H BRIT Infusion Piperacillin Sod/T azobactam 50 mls @ 12.5 mls /hr 09/29/20 14:00 09/30/20 06:21 Sod 3.375 gm/ So dium Chloride IV 12.5 mls/hr Q8H BRIT Administration Protocol Olanzapine 10 mg 09/28/20 00:28 09/28/20 00:49 Olanzapine 10 Mg Vial IM 10 mg ONCE PRN Administration ANXIETY Vitals/I&O/Wt Last Vital Signs Temp 98.9 F 09/30/20 04:00 Pulse 92 09/30/20 08:55 Resp 18 09/30/20 08:55 BP 155/108 09/30/20 04:00 Pulse Ox 94 09/30/20 08:55 09/29/20 09/30/2021 22:59 06:59 14:59 Intake Total 50 / 410 530 / 940 Balance 50 / 410 530 / 940 Weight last 48 hrs Weight 95.793 kg Weight 95.255 g Weight 95.254 kg Physical Exam Narrative: EXAM NARRATIVE: Awake alert oriented. No acute distress. Mood and affect are appropriate. Responses are adequate. Skin is warm and dry. Moist mucous membranes. Eyes. PERRLA, extraocular muscles are intact. Neck is supple. No JVD. Clear to auscultation bilaterally. No respiratory distress. Heart S1, S2, regular Abdomen obese, soft, nontender, bowel sounds are present Extremities no edema cyanosis or calf tenderness bilaterally Neuro exam is nonfocal. Normal speech. Urinary Catheter Management^: Knight: Cath Placed During This Visit: yes, but has since been removed by the nurse Reason for Continuing Indwelling Catheter: Acute Urinary Retention or O bstruction Date Urinary Catheter Removed: 09/28/20 Time Urinary Catheter Discontinued: 11:30 Data : 09/30/20 03:25 09/30/20 03:25 Micro: Microbiology 09/26/20 17:12 Urine Culture - Final Urine,Clean Catch Pseudomonas aeruginosa A&P Additional A&P Information Acute metabolic encephalopathy. Currently resolved. Probably multifactorial. Could be related to opiates and definitely to hypercapnic metabolic acidosis. TSH and ammonia levels within normal range. CT was unremarkable. Acute hypoxic and hypercapnic respiratory failure. Resolved. Currently on room air and is oxygenating well. Severe sepsis and septic shock. Hypotension has resolved. Off pressors. Continuing Zosyn. Doubt pneumonia. Calcitonin is normal. UTI. Cultures positive for Pseudomonas. Continue Zosyn. Acute kidney injury probably secondary to above. Resolved. Renal ultrasound was within normal range. We will try to avoid nephrotoxic medications. Oral hydration. Hyperkalemia. Probably secondary to acute kidney injury and acidosis. Resolved. Monitor. Hypokalemia. Replace and monitor. Anemia. Stable. Monitor. Elevated LFTs. Ordering ultrasound to evaluate the liver and biliary system. If he has cirrhosis this could explain his hypoglycemia. Hyponatremia. Resolved. Monitor. Hypoglycemia. Not sure what the causes. His A1c is almost 10. I doubt insulinoma. I doubt diabetes medication induced. He has not received anything since his admission. Could be secondary to Levaquin or heparin according to up-to-date. Adjustments to medications were done. Currently improving but huma diaz has occasional hypoglycemic episodes. Try to decrease the rate of D5 NS. We will continue close monitoring. On hypoglycemia protocol ? Adrenal insufficiency. As above. Continue steroid taper. DVT prophylaxis. Lovenox. GI prophylaxis. Famotidine. The plan of care was discussed with the patient. He verbalized understanding and agreement. Attestations Medical Necessity Statement*: Still hypoglycemic requiring IV glucose. Coding Level of Care Code Acute Hydraulic Tester for Kyleigh Haas
[2020-09-30 14:18] LABS: Add Urine Culture? Yes; Add Urine Microscopic? YES; Bacteria Urine 1+ /hpf; Bilirubin Urine Neg (Negative); Blood Urine Neg (Negative); Glucose Urine UA Norm (Normal); Ketones Urine 1+ (Negative); Leukocyte Esterase Urine Trace (Negative); Nitrate Urine Negative (Negative); Protein Urine 1+ (Negative); RBC Urine 0-4 /hpf (0-2); Squamous Epithelial Cell Urine 0-4 /hpf (0-5); Urine Appearance Clear (CLEAR); Urine Color Yellow (Yellow); Urobilinogen Urine Norm (Negative); WBC Urine 40-55 /hpf (0-5); pH Urine 5 (5-7)
[2020-09-30] MEDS: dextrose 5%-sod chloride 0.9% 1,000 ML 50 ML IV (14:41)
[2020-09-30] MEDS: potassium chloride ER 20 mEq Tablet 40 MEQ PO ×2 (14:42→17:54)
[2020-09-30] MEDS: enoxaparin 40 mg/0.4 mL Syringe SUBCUT (17:54)
[2020-09-30 18:10] LABS: Glucose Point of Care 168 mg/dL (70-110)
[2020-10-01] VITALS (28 sets, daily range): BP systolic 152–190; BP diastolic 65–128; PULSE 74–95; RESP 1–40; TEMP 36.5–36.7; O2SAT 87–98
[2020-10-01] MEDS: hyDRALAzine 20 mg/mL INJ 1 mL 10 MG IVP (03:57)
[2020-10-01 04:39] LABS: Basophils % 0.4 %; Eosinophils # 0.1 10^3/uL (0.0-0.8); Eosinophils % 1.8 %; Hemoglobin 10.9 g/dL (11.7-16.6); Lymphocytes # 1.5 10^3/uL (0.8-4.8); Lymphocytes % 19.2 %; Mean Corpuscular HGB Conc 31.1 g/dL (30.0-36.0); Mean Corpuscular Hemoglobin 27.8 pg (28.0-34.0); Mean Corpuscular Volume 89.3 fL (80-94); Mean Platelet Volume 10.3 fL (7.4-10.4); Monocytes # 0.7 10^3/uL (0.2-0.9); Monocytes % 8.6 %; Neutrophils # 5.26 10^3/uL (1.8-7.7); Neutrophils % 69.3 %; Nucleated Red Blood Cells % 0.3 %; Platelet Count 424 10^3/cmm (130-400); Red Blood Count 3.92 10^6/uL (4.1-5.3); Red Cell Distribution Width 14.4 % (12.1-15.1); White Blood Count 7.6 10^3/uL (4.0-10.0)
[2020-10-01 05:04] LABS: Albumin Level 2.8 g/dL (3.5-5.2); Blood Urea Nitrogen 12 mg/dL (8-23); Calcium 8.6 mg/dL (8.5-10.5); Carbon Dioxide 27 mmol/L (22-29); Chloride 105 mmol/L (98-107); Glomerular Filtration Rate 96.1 mL/min (90-130); Glucose 67 mg/dL (65-115); Magnesium 1.7 mg/dL (1.7-2.3); Phosphorus 3.3 mg/dL (2.5-4.5); Sodium 141 mmol/L (136-145)
[2020-10-01 05:05] LABS: Anion Gap 12.1 (5-19); Potassium 3.1 mmol/L (3.5-5.1)
[2020-10-01] MEDS: piperacillin-tazobactam 3.375 GM in sodium chloride 0.9% (plus) 50 ML IV (05:59)
[2020-10-01 06:41] LABS: Glucose Point of Care 148 mg/dL (70-110)
[2020-10-01 06:41] LABS: Glucose Point of Care 86 mg/dL (70-110)
[2020-10-01 06:41] LABS: Glucose Point of Care 106 mg/dL (70-110)
[2020-10-01 06:41] LABS: Glucose Point of Care 77 mg/dL (70-110)
--- NOTE | 2020-10-01 07:00 | USR_ITS ---
PROCEDURE INFORMATION: Exam: US Abdomen, Limited; Right Upper Quadrant Exam date and time: 10/01/2020 8:03 AM Age: 70 years old Clinical indication: Abnormal findings; Abnormal lab test; Elevated liver enzymes; Additional info: Abnormal lfts TECHNIQUE: Imaging protocol: US abdomen. Real time ultrasound with image documentation. Limited exam focused on the right upper quadrant. COMPARISON: US renal BI* [id number] 09/26/2020 3:14 PM FINDINGS: Liver: Normal. No masses. Gallbladder: Cholelithiasis. The gallbladder wall is thickened at 3.3 mm. There is dependent thickened echogenicity in the gallbladder. This could represent thick sludge or a come gone or a bonilla of stones. The possibility of infiltrating gallbladder mass cannot be excluded. Common bile duct: Normal bile ducts. Pancreas: The pancreas was obscured by bowel gas. Right kidney: There is a 1.3 cm benign cyst in the inferior pole of the right kidney. Otherwise the right kidney is normal in size with no obvious calcification or hydronephrosis. Aorta: The aorta was obscured by bowel gas. US/US abdomen limited [id number] IMPRESSION: 1. Cholelithiasis with thickening of the gallbladder wall at 3.3 mm. 2. Echogenic material on the dependent wall of the gallbladder. This may represent thick sludge or stones but an infiltrating gallbladder wall process/neoplasm cannot be excluded. 3. Suboptimal due to bowel gas. The pancreas and abdominal aorta could not be visualized.
[2020-10-01] MEDS: pantoprazole DR 40 mg Tablet PO (10:07)
[2020-10-01] MEDS: clopidogrel 75 mg Tablet PO (10:08)
[2020-10-01] MEDS: dexamethasone 4 mg Tablet PO (10:08)
[2020-10-01] MEDS: famotidine 20 mg Tablet PO ×2 (10:09→17:55)
[2020-10-01] MEDS: aspirin 325 mg Tablet PO (10:09)
[2020-10-01] MEDS: losartan 50 mg Tablet 100 MG PO (10:10)
[2020-10-01] MEDS: atorvastatin 40 mg Tablet PO (10:10)
[2020-10-01] MEDS: levofloxacin-dextrose 5 % 750 MG/150 ML PREMIX 100 MG IV (10:11)
--- NOTE | 2020-10-01 10:29 | PC.NURSE ---
IMM Update Pg.2 of IMM updated with patient over the phone, who verbalized understanding.
[2020-10-01] MEDS: verapamil ER 240 mg Tablet PO (11:15)
--- NOTE | 2020-10-01 13:46 | PM.PN ---
Subjective Subjective: Interval history: Patient is doing better. Denies any active complaints. Reports getting stronger. No chest pain, shortness of breath, cough, palpitations. No confusion. No dizziness. No nausea or vomiting. Medications: Reviewed: Yes Medication Review Details: Generic Name Dose Route Start Last Admin Trade Name Freq PRN Reason Stop Dose Admin Albuterol/Ipratrop ium 3 ml 09/26/20 16:56 09/28/20 20:59 Ipratropium-Albu terol 3 Ml Neb INHALATION 3 ml Q4H.RESPIRATORY P RN Administration SHORTNESS OF ZOLTAN TH Aspirin 325 mg 10/01/20 09:00 10/01/20 10:09 Aspirin 325 Mg T ablet PO 325 mg DAILY BRIT Administration Atorvastatin Calci um 40 mg 10/01/20 09:00 10/01/20 10:10 Atorvastatin 40 Mg Tablet PO 40 mg DAILY BRIT Administration Clopidogrel Bisulf ate 75 mg 10/01/20 09:00 10/01/20 10:08 Clopidogrel 75 M g Tablet PO 75 mg DAILY BRIT Administration Dexamethasone 4 mg 09/28/20 11:30 10/01/20 10:08 Dexamethasone 4 Mg Tablet PO 4 mg DAILY BRIT Administration Enoxaparin Sodium 40 mg 09/29/20 18:00 09/30/20 17:54 Enoxaparin 40 Mg /0.4 Ml Syringe SUBCUT 40 mg Q24H BRIT Administration Famotidine 20 mg 09/28/20 18:00 10/01/20 10:09 Famotidine 20 Mg Tablet PO 20 mg BID BRIT Administration Norepinephrine Bit artrate 4 mg 254 mls @ 0 mls/h r 09/26/20 12:45 09/26/20 21:13 / Dextrose IV 0 mcg/min .Q0M BRIT 0 mls/hr Titration Protocol Per Protocol Levofloxacin/Dextr ose 750 mg in 150 mls @ 100 mls/hr 10/01/20 08:45 10/01/20 10:11 Levaquin-D5w IV 100 mls/hr Q24H BRIT Administration Protocol Losartan Potassium 100 mg 10/01/20 09:00 10/01/20 10:10 Losartan 50 Mg T ablet PO 100 mg DAILY BRIT Administration Olanzapine 10 mg 09/28/20 00:28 09/28/20 00:49 Olanzapine 10 Mg Vial IM 10 mg ONCE PRN Administration ANXIETY Pantoprazole Sodiu m 40 mg 10/01/20 09:00 10/01/20 10:[address] 40 Mg Tablet PO 40 mg DAILY BRIT Administration Verapamil HCl 240 mg 10/01/20 09:00 10/01/20 11:15 Verapamil Er 240 Mg Tablet PO 240 mg DAILY BRIT Administration Vitals/I&O/Wt Last Vital Signs Temp 98.1 F 10/01/20 04:00 Pulse 81 10/01/20 06:00 Resp 13 10/01/20 04:00 BP 161/100 10/01/20 04:00 Pulse Ox 98 10/01/20 04:00 09/30/20 10/01/20 10/01/20 22:59 06:59 14:59 Intake Total 1220 / 1510 328 / 1838 716 / 716 Balance 1220 / 1510 328 / 1838 716 / 716 Weight last 48 hrs Weight 95.793 kg Weight 95.255 g Physical Exam Narrative: EXAM NARRATIVE: Awake alert oriented. No acute distress. Mood and affect are appropriate. Responses are adequate. Skin is warm and dry. Moist mucous membranes. Eyes. PERRLA, extraocular muscles are intact. Neck is supple. No JVD. Clear to auscultation bilaterally. No respiratory distress. Heart S1, S2, regular Abdomen obese, soft, nontender, bowel sounds are present Extremities no edema cyanosis or calf tenderness bilaterally Neuro exam is nonfocal. Normal speech. Urinary Catheter Management^: Knight: Cath Placed During This Visit: yes, but has since been removed by the nurse Reason for Continuing Indwelling Catheter: Acute Urinary Retention or Obstruction Date Urinary Catheter Removed: 09/28/20 Time Urinary Catheter Discontinued: 11:30 Data : 10/01/20 04:00 10/01/20 04:00 Other Labs: Laboratory Results WBC 7.6 10^3/uL (4.0-10.0) 10/01/20 04:00 RBC 3.92 10^6/uL (4.1-5.3) L 10/01/20 04:00 Hgb 10.9 g/dL (11.7-16.6) L 10/01/20 04:00 Hct 35.0 % (42.0-52.0) L 10/01/20 04:00 MCV 89.3 fL (80-94) 10/01/20 04:00 MCH 27.8 pg (28.0-34.0) L 10/01/20 04:00 MCHC 31.1 g/dL (30.0-36.0) 10/01/20 04:00 RDW 14.4 % (12.1-15.1) 10/01/20 04:00 Plt Count 424 10^3/cmm (130-400) H 10/01/20 04:00 MPV 10.3 fL (7.4-10.4) 10/01/20 04:00 Neut % (Auto) 69.3 % 10/01/20 04:00 Lymph % (Auto) 19.2 % 10/01/20 04:00 Ness % (Auto) 8.6 % 10/01/20 04:00 Eos % (Auto) 1.8 % 10/01/20 04:00 Baso % (Auto) 0.4 % 10/01/20 04:00 Neut # (Auto) 5.26 10^3/uL (1.8-7.7) 10/01/20 04:00 Lymph # (Auto) 1.5 10^3/uL (0.8-4.8) 10/01/20 04:00 Ness # (Auto) 0.7 10^3/uL (0.2-0.9) 10/01/20 04:00 Eos # (Auto) 0.1 10^3/uL (0.0-0.8) 10/01/20 04:00 Baso # (Auto) 0.0 10^3/uL (0.0-0.1) 10/01/20 04:00 Nucleated RBC % (auto) 0.3 % 10/01/20 04:00 Nucleated RBCs # 0.0 /100WBC 10/01/20 04:00 PT 14.70 SECONDS (12.1-14.9) 09/26/20 13:55 INR 1.12 (0.8-1.2) 09/26/20 13:55 APTT 41.7 SECONDS (23.9-36.7) H 09/26/20 13:55 D-Dimer 0.69 ug/mIFEU (0-0.59) H 09/30/20 03:25 Specimen Type Arterial 09/27/20 10:45 Sample Site Radial, left 09/27/20 10:45 ABG pH 7.31 (7.35-7.45) L 09/27/20 10:45 ABG pCO2 51.1 mmHg (35-45) H 09/27/20 10:45 ABG pO2 72.1 mmHg (80.0-100.0) L 09/27/20 10:45 ABG HCO3 25.9 mmol/L (22-26) 09/27/20 10:45 ABG Base Excess -0.8 mmol/L (-2.0-2.0) 09/27/20 10:45 Bernardino Test Pos 09/27/20 10:45 Hematocrit 35.0 % (42-52) L 09/27/20 10:45 O2 Delivery Device Bipap 09/27/20 10:45 O2 Liters/Min 5.0 % 09/26/20 12:33 FiO2 25.0 % 09/27/20 10:45 PEEP 12.0 cmH20 09/27/20 10:45 Automation Qa Lead ID Amh 09/27/20 10:45 Sodium 141 mmol/L (136-145) 10/01/20 04:00 Potassium 3.1 mmol/L (3.5-5.1) L 10/01/20 04:00 Chloride 105 mmol/L (98-107) 10/01/20 04:00 Carbon Dioxide 27 mmol/L (22-29) 10/01/20 04:00 Anion Gap 12.1 (5-19) 10/01/20 04:00 BUN 12 mg/dL (8-23) 10/01/20 04:00 Creatinine 0.8 mg/dL (0.7-1.2) 10/01/20 04:00 GFR Calculation 96.1 mL/min (90-130) 10/01/20 04:00 Glucose 67 mg/dL (65-115) 10/01/20 04:00 POC Glucose 148 mg/dL (70-110) H 09/30/20 19:37 Estimat Average Glucose 226 09/26/20 13:55 Hemoglobin A1c 9.5 % (4.0-6.0) H 09/26/20 13:55 Calculated Osmolality 298 mOsm/kg (285-295) H 09/30/20 03:25 Lactic Acid 0.9 mmol/L (0.5-2.2) 09/26/20 13:55 Calcium 8.6 mg/dL (8.5-10.5) 10/01/20 04:00 Phosphorus 3.3 mg/dL (2.5-4.5) 10/01/20 04:00 Magnesium 1.7 mg/dL (1.7-2.3) 10/01/20 04:00 Total Bilirubin 0.2 mg/dL (0.15-1.2) 09/30/20 03:25 AST 47 U/L (0-40) H 09/30/20 03:25 ALT 56 U/L (0-41) H 09/30/20 03:25 Alkaline Phosphatase 137 IU/L (40-130) H 09/30/20 03:25 Ammonia 49 umol/L (16-60) 09/26/20 13:55 C-Reactive Protein 23.4 mg/L (0.0-4.9) H 09/30/20 03:25 Total Protein 6.4 g/dL (6.6-8.7) L 09/30/20 03:25 Albumin 2.8 g/dL (3.5-5.2) L 10/01/20 04:00 Globulin 3.2 g/dL (1.3-4.6) 09/30/20 03:25 Procalcitonin 0.14 ng/mL (0-0.5) 09/30/20 03:25 TSH 2.16 uIU/mL (0.27-4.20) 09/26/20 13:55 Random Cortisol 26.65 ug/mL (2.47-19.5) H 09/27/20 13:58 Urine Color Yellow (Yellow) 09/30/20 13:51 Urine Appearance Clear (CLEAR) 09/30/20 13:51 Urine pH 5 (5-7) 09/30/20 13:51 Ur Specific [place] 1.010 (1.005-1.030) 09/30/20 13:51 Urine Protein 1+ (Negative) H 09/30/20 13:51 Urine Glucose (UA) Norm (Normal) 09/30/20 13:51 Urine Ketones 1+ (Negative) H 09/30/20 13:51 Urine Blood Neg (Negative) 09/30/20 13:51 Urine Nitrate Negative (Negative) 09/30/20 13:51 Urine Bilirubin Neg (Negative) 09/30/20 13:51 Urine Urobilinogen Norm mg/dL (Negative) 09/30/20 13:51 Ur Leukocyte Esterase Trace (Negative) H 09/30/20 13:51 Urine RBC 0-4 /hpf (0-2) H 09/30/20 13:51 Urine WBC 40-55 /hpf (0-5) H 09/30/20 13:51 Ur Squamous Epith Cells 0-4 /hpf (0-5) H 09/30/20 13:51 Amorphous Sediment Not Reportable 09/30/20 13:51 Urine Bacteria 1+ /hpf (NONE) H 09/30/20 13:51 Hyaline Casts 0-4 /lpf H 09/26/20 17:12 Urine Yeast Trace /hpf 09/30/20 13:51 SARS-CoV-2 RNA (RT-PCR) Not detected (NOT DETECTED) 09/28/20 08:[address] 09/26/20 13:07 IMPRESSION: No evidence of active or acute intracranial pathologic process, hemorrhage, or trauma. Radiation Dose CTDIVOL = (mGy): DLP = 858.43 (mGy-cm) Renal Ultrasound 09/26/20 13:07 IMPRESSION: No renal obstruction or medical renal disease. Normal kidneys. Abdomen Ultrasound 10/01/20 07:00 IMPRESSION: 1. Cholelithiasis with thickening of the gallbladder wall at 3.3 mm. 2. Echogenic material on the dependent wall of the gallbladder. This may represent thick sludge or stones but an infiltrating gallbladder wall process/neoplasm cannot be excluded. 3. Suboptimal due to bowel gas. The pancreas and abdominal aorta could not be visualized. Micro: Microbiology 09/30/20 13:51 Urine Culture - Preliminary Urine,Clean Catch A&P Additional A&P Information Acute metabolic encephalopathy. Currently resolved. Probably multifactorial. Could be related to opiates and definitely to hypercapnic metabolic acidosis. Also has a UTI. TSH and ammonia levels within normal range. CT was unremarkable. Acute hypoxic and hypercapnic respiratory failure. Resolved. Currently on room air and is oxygenating well. Severe sepsis and septic shock, probably secondary to UTI. Hypotension has resolved. Off pressors. Continuing Levaquin. Doubt pneumonia. Calcitonin is normal. UTI. Cultures positive for Pseudomonas. Because UA shows ongoing UTI while on Zosyn I am switching him to Levaquin today. Acute kidney injury probably secondary to above. Resolved. Renal ultrasound was within normal range. We will try to avoid nephrotoxic medications. Oral hydration. Hyperkalemia. Probably secondary to acute kidney injury and acidosis. Resolved. Monitor. Hypokalemia. Replace and monitor. Anemia. Stable. Monitor. Elevated LFTs. Gallbladder wall thickening and gallstones. Differential could include gallbladder neoplasia/cancer versus possible cholecystitis. However the patient does not have abdominal pain. We will go ahead and order MRCP to differentiate. Will consider surgical consultation. Continue Levaquin. Hyponatremia. Resolved. Monitor. Hypoglycemia. Not sure what the causes. His A1c is almost 10. I doubt insulinoma. I doubt diabetes medication induced. He has not received anything since his admission. Could be secondary to Levaquin or heparin according to up-to-date. Adjustments to medications were done. Currently improving but still has occasional hypoglycemic episodes. IV fluids are discontinued. Continue close monitoring. If develops worsening hypoglycemia with Levaquin we will switch him to Cipro. ? Adrenal insufficiency. As above. Continue steroid taper. DVT prophylaxis. Lovenox. GI prophylaxis. Famotidine. The plan of care was discussed with the patient. He verbalized understanding and agreement. Attestations Medical Necessity Statement*: Additional work-up is in progress. Please see my notes. Coding Level of Care Code Acute Research/Program Director for Kyleigh Haas
[2020-10-01] MEDS: enoxaparin 40 mg/0.4 mL Syringe SUBCUT (17:55)
[2020-10-02] VITALS (29 sets, daily range): BP systolic 121–192; BP diastolic 48–86; PULSE 68–92; RESP 14–24; TEMP 36.6–37; O2SAT 88–98
[2020-10-02 05:27] LABS: Basophils % 0.2 %; Eosinophils # 0.2 10^3/uL (0.0-0.8); Eosinophils % 2.4 %; Hematocrit 35.2 % (42.0-52.0); Hemoglobin 11.3 g/dL (11.7-16.6); Lymphocytes % 21.1 %; Mean Corpuscular HGB Conc 32.1 g/dL (30.0-36.0); Mean Corpuscular Hemoglobin 28.3 pg (28.0-34.0); Mean Corpuscular Volume 88.2 fL (80-94); Mean Platelet Volume 10.2 fL (7.4-10.4); Monocytes # 0.8 10^3/uL (0.2-0.9); Monocytes % 8.7 %; Neutrophils # 6.19 10^3/uL (1.8-7.7); Neutrophils % 66.8 %; Nucleated Red Blood Cells % 0 %; Platelet Count 378 10^3/cmm (130-400); Red Blood Count 3.99 10^6/uL (4.1-5.3); Red Cell Distribution Width 14.2 % (12.1-15.1); White Blood Count 9.3 10^3/uL (4.0-10.0)
[2020-10-02 05:52] LABS: Alanine Aminotransferase 60 U/L (0-41); Alkaline Phosphatase 118 IU/L (40-130); Aspartate Amino Transferase 32 U/L (0-40); Blood Urea Nitrogen 12 mg/dL (8-23); Calcium 8.8 mg/dL (8.5-10.5); Carbon Dioxide 27 mmol/L (22-29); Chloride 106 mmol/L (98-107); Globulin 3.2 g/dL (1.3-4.6); Glomerular Filtration Rate 96.1 mL/min (90-130); Glucose 71 mg/dL (65-115); Magnesium 1.7 mg/dL (1.7-2.3); Phosphorus 3.3 mg/dL (2.5-4.5); Sodium 142 mmol/L (136-145); Total Bilirubin 0.3 mg/dL (0.15-1.2); Total Protein 6.2 g/dL (6.6-8.7)
[2020-10-02] MEDS: dexamethasone 4 mg Tablet PO (11:04)
[2020-10-02] MEDS: verapamil ER 240 mg Tablet PO (11:04)
[2020-10-02] MEDS: pantoprazole DR 40 mg Tablet PO (11:04)
[2020-10-02] MEDS: atorvastatin 40 mg Tablet PO (11:04)
[2020-10-02] MEDS: clopidogrel 75 mg Tablet PO (11:04)
[2020-10-02] MEDS: famotidine 20 mg Tablet PO ×2 (11:05→17:00)
[2020-10-02] MEDS: aspirin 325 mg Tablet PO (11:05)
[2020-10-02] MEDS: losartan 50 mg Tablet 100 MG PO (11:05)
[2020-10-02] MEDS: hydroCHLOROthiazide 25 mg Tablet PO (11:13)
[2020-10-02] MEDS: potassium chloride ER 20 mEq Tablet 40 MEQ PO (11:13)
[2020-10-02] MEDS: levofloxacin-dextrose 5 % 750 MG/150 ML PREMIX 100 MG IV (11:16)
--- NOTE | 2020-10-02 13:24 | P.PN_ITS ---
Subjective Subjective: Interval history: Doing okay. Denies any active complaints. Wants to take a bath. Denies shortness of breath. No fever or chills. No nausea or vomiting. No diarrhea. Medications: Reviewed: Yes Medication Review Details: Generic Name Dose Route Start Last Admin Trade Name Pau PRN Reason Stop Dose Admin Albuterol/Ipratrop ium 3 ml 09/26/20 16:56 09/28/20 20:59 Ipratropium-Albu terol 3 Ml Neb INHALATION 3 ml Q4H.RESPIRATORY P RN Administration SHORTNESS OF ZOLTAN TH Aspirin 325 mg 10/01/20 09:00 10/02/20 11:05 Aspirin 325 Mg T ablet PO 325 mg DAILY BRIT Administration Atorvastatin Calci um 40 mg 10/01/20 09:00 10/02/20 11:04 Atorvastatin 40 Mg Tablet PO 40 mg DAILY BRIT Administration Clopidogrel Bisulf ate 75 mg 10/01/20 09:00 10/02/20 11:04 Clopidogrel 75 M g Tablet PO 75 mg DAILY BRIT Administration Dexamethasone 4 mg 09/28/20 11:30 10/02/20 11:04 Dexamethasone 4 Mg Tablet PO 4 mg DAILY BRIT Administration Enoxaparin Sodium 40 mg 09/29/20 18:00 10/01/20 17:55 Enoxaparin 40 Mg /0.4 Ml Syringe SUBCUT 40 mg Q24H BRIT Administration Famotidine 20 mg 09/28/20 18:00 10/02/20 11:05 Famotidine 20 Mg Tablet PO 20 mg BID BRIT Administration Hydrochlorothiazid e 25 mg 10/02/20 10:00 10/02/20 11:13 Hydrochlorothiaz rachael 25 Mg Tablet PO 25 mg DAILY BRIT Administration Norepinephrine Bit artrate 4 mg 254 mls @ 0 mls/h r 09/26/20 12:45 09/26/20 21:13 / Dextrose IV 0 mcg/min .Q0M BRIT 0 mls/hr Titration Protocol Per Protocol Levofloxacin/Dextr ose 750 mg in 150 mls @ 100 mls/hr 10/01/20 08:45 10/02/20 11:16 Levaquin-D5w IV 100 mls/hr Q24H BRIT Administration Protocol Losartan Potassium 100 mg 10/01/20 09:00 10/02/20 11:05 Losartan 50 Mg T ablet PO 100 mg DAILY BRIT Administration Olanzapine 10 mg 09/28/20 00:28 09/28/20 00:49 Olanzapine 10 Mg Vial IM 10 mg ONCE PRN Administration ANXIETY Pantoprazole Sodiu m 40 mg 10/01/20 09:00 10/02/20 11:[address] 40 Mg Tablet PO 40 mg DAILY BRIT Administration Potassium Chloride 40 meq 10/02/20 09:45 10/02/20 11:13 Potassium Chlori de Er 20 Meq Table t PO 10/02/20 13:46 40 meq Q4H BRIT Administration Verapamil HCl 240 mg 10/01/20 09:00 10/02/20 11:04 Verapamil Er 240 Mg Tablet PO 240 mg DAILY BRIT Administration Vitals/I&O/Wt Last Vital Signs Temp 97.8 F 10/02/20 11:35 Pulse 79 10/02/20 11:35 Resp 18 10/02/20 11:35 BP 150/79 10/02/20 11:35 Pulse Ox 98 10/02/20 11:35 10/01/20 10/02/20 10/02/20 22:59 06:59 14:59 Intake Total 480 / 480 Output Total 900 / 900 Balance -900 / -34 480 / 480 Weight last 48 hrs Weight 95.708 kg Physical Exam Narrative: EXAM NARRATIVE: Awake alert oriented. No acute distress. Mood and affect are appropriate. Responses are adequate. Skin is warm and dry. Moist mucous membranes. Eyes. PERRLA, extraocular muscles are intact. Neck is supple. No JVD. Clear to auscultation bilaterally. No respiratory distress. Heart S1, S2, regular Abdomen obese, soft, nontender, bowel sounds are present Extremities no edema cyanosis or calf tenderness bilaterally Neuro exam is nonfocal. Normal speech. Urinary Catheter Management^: Knight: Cath Placed During This Visit: yes, but has since been removed by the nurse Reason for Continuing Indwelling Catheter: Acute Urinary Retention or Obstruction Date Urinary Catheter Removed: 09/28/20 Time Urinary Catheter Discontinued: 11:30 Data : 10/02/20 04:30 10/02/20 04:30 Micro: Microbiology 09/26/20 13:55 Blood Culture - Final Blood NO GROWTH AFTER 5 DAYS 09/26/20 13:46 Blood Culture - Final Blood NO GROWTH AFTER 5 DAYS 09/30/20 13:51 Urine Culture - Preliminary Urine,Clean Catch A&P Additional A&P Information Acute metabolic encephalopathy. Currently resolved. Probably multifactorial. Could be related to opiates and definitely to hypercapnic metabolic acidosis. Also has a UTI. TSH and ammonia levels within normal range. CT was unremarkable. Acute hypoxic and hypercapnic respiratory failure. Resolved. Currently on room air and is oxygenating well. Severe sepsis and septic shock, probably secondary to UTI. Hypotension has resolved. Off pressors. Continuing Levaquin. Doubt pneumonia. Calcitonin is normal. UTI. Cultures positive for Pseudomonas. Because UA shows ongoing UTI while on Zosyn I switched him to Levaquin. Acute kidney injury probably secondary to above. Resolved. Renal ultrasound was within normal range. We will try to avoid nephrotoxic medications. Oral hydration. Hyperkalemia. Probably secondary to acute kidney injury and acidosis. Resolved. Monitor. Hypokalemia. Replace and monitor. Anemia. Stable. Monitor. Elevated LFTs. Gallbladder wall thickening and gallstones. Differential could include gallbladder neoplasia/cancer versus possible cholecystitis. However the patient does not have abdominal pain. MRCP is pending. Will consider surgical consultation. Continue Levaquin. Hyponatremia. Resolved. Monitor. Hypoglycemia. Not sure what the causes. His A1c is almost 10. I doubt insulinoma. I doubt diabetes medication induced. He has not received anything since his admission. Could be secondary to Levaquin or heparin according to up-to-date. Adjustments to medications were done. Currently improving but still has occasional hypoglycemic episodes. IV fluids are discontinued. Continue close monitoring. If develops worsening hypoglycemia with Levaquin we will switch him to Cipro. ? Adrenal insufficiency. As above. Continue steroid taper. Switching from 4 to 2 mg today. DVT prophylaxis. Lovenox. GI prophylaxis. Famotidine. The plan of care was discussed with the patient. He verbalized understanding and agreement. Attestations Medical Necessity Statement*: Probably home soon. Waiting for MRCP. Coding Level of Care Code Acute [employer] Program Coordinator for Kyleigh Haas
[2020-10-02] MEDS: enoxaparin 40 mg/0.4 mL Syringe SUBCUT (17:01)
--- NOTE | 2020-10-02 18:45 | PC.NURSE ---
Received bedside report on patient from Lilliam Mauro RN. Assumed care at this time.
[2020-10-03] VITALS (12 sets, daily range): BP systolic 116–172; BP diastolic 51–93; PULSE 69–90; RESP 17; TEMP 37.2; O2SAT 71–97
[2020-10-03 04:48] LABS: Alanine Aminotransferase 68 U/L (0-41); Albumin Level 3.3 g/dL (3.5-5.2); Alkaline Phosphatase 127 IU/L (40-130); Aspartate Amino Transferase 30 U/L (0-40); Blood Urea Nitrogen 12 mg/dL (8-23); Calcium 9.1 mg/dL (8.5-10.5); Carbon Dioxide 26 mmol/L (22-29); Chloride 102 mmol/L (98-107); Glomerular Filtration Rate 96.1 mL/min (90-130); Glucose 120 mg/dL (65-115); Magnesium 1.8 mg/dL (1.7-2.3); Osmolality Calculated 287 mOsm/kg (285-295); Sodium 138 mmol/L (136-145); Total Bilirubin 0.3 mg/dL (0.15-1.2); Total Protein 6.3 g/dL (6.6-8.7)
[2020-10-03 05:07] LABS: Anion Gap 13.4 (5-19); Potassium 3.4 mmol/L (3.5-5.1)
[2020-10-03] MEDS: dexamethasone 4 mg Tablet 2 MG PO (09:06)
[2020-10-03] MEDS: clopidogrel 75 mg Tablet PO (09:06)
[2020-10-03] MEDS: pantoprazole DR 40 mg Tablet PO (09:07)
[2020-10-03] MEDS: hydroCHLOROthiazide 25 mg Tablet PO (09:07)
[2020-10-03] MEDS: famotidine 20 mg Tablet PO (09:07)
[2020-10-03] MEDS: aspirin 325 mg Tablet PO (09:08)
[2020-10-03] MEDS: atorvastatin 40 mg Tablet PO (09:08)
[2020-10-03] MEDS: verapamil ER 240 mg Tablet PO (09:19)
[2020-10-03] MEDS: losartan 50 mg Tablet 100 MG PO (09:19)
[2020-10-03 11:36] LABS: Glucose Point of Care 80 mg/dL (70-110)
[2020-10-03 11:37] LABS: Glucose Point of Care 153 mg/dL (70-110)
[2020-10-03 11:37] LABS: Glucose Point of Care 73 mg/dL (70-110)
[2020-10-03 11:37] LABS: Glucose Point of Care 129 mg/dL (70-110)
[2020-10-03 11:37] LABS: Glucose Point of Care 171 mg/dL (70-110)
[2020-10-03 11:37] LABS: Glucose Point of Care 98 mg/dL (70-110)
[2020-10-03 11:37] LABS: Glucose Point of Care 176 mg/dL (70-110)
--- NOTE | 2020-10-03 11:49 | PC.SOCIAL ---
*IMM UPDATE* Gave IMM update via phone to pt. @ 11:48am 10/03/20. He understood.
[2020-10-03] MEDS: levoFLOXacin 750 mg Tablet PO (12:09)
--- NOTE | 2020-10-03 13:54 | MR_ITS ---
WS: [id number] MRI/MRCP OF THE ABDOMEN WITHOUT GADOLINIUM ENHANCEMENT TECHNIQUE: Thin and thick slab MRCP, Axial T2, Coronal MRCP, Axial Dual Echo, and Axial 2-D Fiesta imaging was obtained. Coronal 2-D Fiesta imaging. CLINICAL INFORMATION: Abnormal LFTs and ?gallbladder cancer COMPARISON: CT and ultrasound October 01, 2020 FINDINGS: Cholelithiasis and sludge extending into the gallbladder neck measuring 8 to 9 mm. No pericholecystic fluid or significant gallbladder wall thickening. Pedunculated lesion in the gallbladder neck may re present small polyp or sludge ball measuring 8 to 9 mm corresponding to the ultrasound. No significan t gallbladder wall thickening or pericholecystic fluid. No intrahepatic biliary duct dilatation. Common bile duct appears normal. Normal tapering of the com mon bile duct distally at the pancreatic head and duodenum. Normal pancreatic duct. Normal renal pare nchymal enhancement. Normal adrenal glands. Normal GE junction. Liver is normal in appearance. MR/MR MRCP [id number] Impression: 1. Cholelithiasis and sludge in the gallbladder neck with suggestion of a smal l pedunculated polyp measuring 8 to 9 mm. No gallbladder wall thickening or per icholecystic fluid. 2. Common bile duct is normal. Normal pancreatic duct. 3. No intrahepatic biliary ductal dilatation. 4. No other significant findings.
--- NOTE | 2020-10-03 14:31 | PM.DCS ---
Discharge Providers Date of Admission: 09/26/20 11:45 Date of Discharge: October 03, 2020 Attending Provider at Admission: Gildardo Brito Attending Provider at Discharge: Helder Edgar MD Primary Care Provider: Ja Lay MD Reason for Visit Reason for Visit: Covid Pneumonia Hospital Course Hospital Course This is a 70-year-old male who was a transfer from [facility] for concerns for hypoxia and hypotension with diagnosis of COVID-19 pneumonia 2 weeks ago Patient was admitted to [facility] for acute metabolic encephalopathy, and acute hypoxic hypercapnic respiratory failure, UTI, pneumonia, possible cholecystitis, and also related to opiates, hypercapnia, metabolic acidosis, managed in the intensive care unit, CT of the head was unremarkable, received BiPAP, oxygen therapy, broad-spectrum antibiotic therapy, pressors, and clinically monitored. Patient's clinical status improved, he was transitioned to nasal cannula, to room air, pressors were discontinued, antibiotic therapy was de-escalate it, mentation returned back to baseline, urine culture showed Pseudomonas. Patient did not require any treatment for his COVID-19. Blood cultures have been unremarkable. For patient Pseudomonas aeruginosa UTI, discharged on ciprofloxacin For patient's pneumonia, he finished 7 days of inpatient antibiotic therapy For patient's possible acute cholecystitis, patient had an MRCP done as inpatient, which showed no significant gallbladder wall thickening, but did show biliary sludge, possible gallbladder polyp in the neck, cholelithiasis. Patient is definitely at increased risk of cholecystitis the near future. Has been discharged on Cipro and Flagyl for 7 remaining days. GI soft diet. With close follow-up with general surgery in 1 to 2 weeks for consideration of elective surgery. Patient also had hypoglycemic episodes during his hospital admission, etiology unclear, possibly secondary to Levaquin or Lovenox. I have reduced his Tresiba dose to 50 units at bedtime, advised to monitor blood sugars 3 times daily, if you were to have hypoglycemic episodes reduce Tresiba dose in half to 25 units at bedtime. Follow-up with primary care provider in the next few days for a follow-up. Physical Exam Const: COMMON NORMALS: no acute distress and patient oriented x3 HENMT: COMMON NORMALS: normocephalic HEAD & SCALP: normocephalic Neck/C-Spine: COMMON NORMALS: no JVD Resp: COMMON NORMALS: normal respiratory effort, No retractions, No use of accessory muscles and clear to auscultation bilaterally AUSCULTATION: clear to auscultation bilaterally Cardio: COMMON NORMALS: no JVD, regular rate, regular rhythm, S1 normal heart sound present and S2 normal heart sound present RATE: regular rate RHYTHM: regular rhythm HEART SOUNDS: S1 normal heart sound present and S2 normal heart sound present GI: COMMON NORMALS: Normal to inspection, nondistended, normoactive bowel sounds present, Soft to palpation, non-tender, No hepatosplenomegaly present, no masses and no bruits PALPATION: Yes Soft to palpation and Yes No hepatosplenomegaly present Extremity: COMMON NORMALS: capillary refill normal, no clubbing, cyanosis or edema, no calf tenderness and no pedal edema Neuro: COMMON NORMALS: patient oriented x3 Psych: COMMON NORMALS: mental status grossly normal Urinary Catheter Management^: Knight: Cath Placed During This Visit: yes, but has since been removed by the nurse Reason for Continuing Indwelling Catheter: Acute Urinary Retention or Obstruction Date Urinary Catheter Removed: 09/28/20 Time Urinary Catheter Discontinued: 11:30 Discharge Data Data Completed and Pending: Completed Studies During Hospitalization Category Date Time Status CT head wo con* 7 0450 Stat Cat Scan 09/26/20 13:07 Completed US abdomen limite d [id number] Routine Ultrasound 10/01/20 07:00 Completed US renal BI* [id number] 0 Routine Ultrasound 09/26/20 13:07 Completed Pending at discharge Category Date Time Status MR MRCP 72718 Rou derrick MRI 10/03/20 13:54 Taken Labs from last 24 hours 10/03/20 10/02/20 10/02/20 04:00 16:57 11:20 Sodium 138 Potassium 3.4 L Chloride 102 Carbon Dioxide 26 Anion Gap 13.4 BUN 12 Creatinine 0.8 GFR Calculation 96.1 Glucose 120 H POC Glucose 153 H 98 Calculated Osmolal ity 287 Calcium 9.1 Magnesium 1.8 Total Bilirubin 0.3 AST 30 ALT 68 H Alkaline Phosphata se 127 Total Protein 6.3 L Albumin 3.3 L Globulin 3.0 10/02/20 10/01/20 10/01/20 07:49 19:29 16:51 Sodium Potassium Chloride Carbon Dioxide Anion Gap BUN Creatinine GFR Calculation Glucose POC Glucose 73 171 H 129 H Calculated Osmolal ity Calcium Magnesium Total Bilirubin AST ALT Alkaline Phosphata se Total Protein Albumin Globulin 10/01/20 10/01/20 10:46 06:42 Sodium Potassium Chloride Carbon Dioxide Anion Gap BUN Creatinine GFR Calculation Glucose POC Glucose 176 H 80 Calculated Osmolal ity Calcium Magnesium Total Bilirubin AST ALT Alkaline Phosphata se Total Protein Albumin Globulin Vitals: Last Vital Signs Temp 98.9 F 10/03/20 12:00 Pulse 79 10/03/20 12:00 Resp 17 10/03/20 12:00 BP 172/85 10/03/20 12:00 Pulse Ox 97 10/03/20 12:00 Discharge Plan Discharge Patient Disposition: Home Condition: Stable Prescriptions: New ciprofloxacin HCl 500 mg tablet 500 mg PO BID 7 Days Qty: 14 RF: 0 metronidazole [Flagyl] 500 mg tablet 500 mg PO Q8H 7 Days Qty: 21 RF: 0 aspirin 81 mg tablet,delayed release (DR/EC) 81 mg PO DAILY 30 Days Qty: 30 RF: 0 Continued cyclobenzaprine 10 mg tablet 10 mg PO TID PRN (Reason: Muscle Spasm) RF: 0 atorvastatin 40 mg tablet 40 mg PO DAILY RF: 0 nabumetone 750 mg tablet 750 mg PO BID RF: 0 clopidogrel 75 mg tablet 75 mg PO DAILY RF: 0 hydrocodone-acetaminophen 10-325 mg tablet 2 tab PO Q8H PRN (Reason: Pain) RF: 0 citalopram 20 mg tablet 20 mg PO DAILY RF: 0 gemfibrozil 600 mg tablet 600 mg PO BID RF: 0 metformin 1,000 mg tablet 1,000 mg PO BID RF: 0 verapamil 240 mg tablet extended release 240 mg PO DAILY RF: 0 triamterene-hydrochlorothiazid 75-50 mg tablet 1 tab PO DAILY RF: 0 losartan 100 mg tablet 100 mg PO DAILY RF: 0 duloxetine 30 mg capsule,delayed release(DR/EC) 30 mg PO DAILY RF: 0 pregabalin 300 mg capsule 300 mg PO BID RF: 0 Dexilant 30 mg capsule,biphase delayed releas 30 mg PO DAILY RF: 0 Changed Tresiba FlexTouch U-200 200 unit/mL (3 mL) insulin pen 50 unit SUBCUT BEDTIME Qty: 0 RF: 0 Discontinued aspirin 325 mg Tablet 325 mg PO DAILY RF: 0 Discharge Orders: Discharge Order (Routine); Ordered 10/03/20 Ordered By: Helder Edgar Referrals: Kelvin Leal MD [Physician] - 1 week (biliary sludge, cholelithiasis) Discharge Diet: GI Soft Discharge Activity: Resume usual activity Patient Instructions: Cholelithiasis (DC) Activity Restrictions/Additional Instructions: -Please drink plenty of electrolyte balance fluids -Please use antibiotics as prescribed -Follow-up with general surgery for consideration of cholecystectomy for biliary sludge, cholelithiasis Discharge Attestations Time Spent in Discharge Care*: greater than 30 min Quality Metrics Clinical Quality Measures During this hospital stay, did patient experience: None Coding Level of Care Code Acute Trimmer And Reinforcer for Kyleigh Haas
[2020-10-03 22:09] LABS: Glucose Point of Care 153 mg/dL (70-110)
== END 2020-10-03 15:38 | disposition home or self-care (01) | DRG 871 ==
LOC: ICU 12:11 → MS 2A 09-27 07:19
PROVIDERS: Admitting Provider Internal Medicine; PCP Family Medicine; Visit Provider Family Medicine
DX: A41.9 Sepsis, unspecified organism (principal); R65.21 Severe sepsis with septic shock; G93.41 Metabolic encephalopathy; J96.22 Acute and chronic respiratory failure with hypercapnia; J96.21 Acute and chronic respiratory failure with hypoxia; U07.1 COVID-19; J18.9 Pneumonia, unspecified organism; E87.2 Acidosis; N17.9 Acute kidney failure, unspecified; K81.0 Acute cholecystitis; N39.0 Urinary tract infection, site not specified; E87.1 Hypo-osmolality and hyponatremia; E87.5 Hyperkalemia; I95.9 Hypotension, unspecified; B96.5 Pseudomonas (aeruginosa) (mallei) (pseudomallei) as the cause of diseases classified elsewhere; Z79.82 Long term (current) use of aspirin; E11.65 Type 2 diabetes mellitus with hyperglycemia; Z79.84 Long term (current) use of oral hypoglycemic drugs
CPT/HCPCS: 12345; 36415; 36416; 36600; 70450; 74181; 76705; 76770; 80053; 80069; 80076; 81001; 82140; 82533; 82803; 82962; 83036; 83605; 83735; 84145; 84443; 85025; 85378; 85610; 85730; 86140; 87040; 87077; 87086; 87186; 87635; 92523; 92526; 92610; 94640; 94660; 94664; 96372; 97110; 97161; 97530; J0360; J1100; J1644; J1650; J1815; J1956; J2020; J2543; J3490; J7030; J7799; J8540